=== PATIENT | female | born 1970 | race Caucasian/White ===

== ENCOUNTER 2019-12-02 16:05 | Emergency (ER) | payer SELFPAY ==
[~2019-12-02] VITALS: Ht 154.9 cm; Wt 68.0 kg
[2019-12-02 16:12] VITALS: BP 161/96
[2019-12-02] MEDS ORDERED: IBUPROFEN 600MG TABLET PO ONE (17:45)
== END 2019-12-02 18:44 | disposition home or self-care (01) ==
LOC: ER 16:05
DX: M25.511 Pain in right shoulder (principal)
CPT/HCPCS: 73030; 99283